=== PATIENT | female | born 1980 | race Caucasian/White ===

== ENCOUNTER 2019-08-02 13:00 | Emergency (ER) | payer MEDICAID ==
[2019-08-02 13:09] VITALS: BP 117/97; PULSE 87
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
== END 2019-08-02 14:15 | disposition left against medical advice (07) ==
LOC: JD.ED 13:00
DX: Z53.21 Procedure and treatment not carried out due to patient leaving prior to being seen by health care provider (principal)

== ENCOUNTER 2019-12-20 11:10 | Emergency (ER) | payer MEDICAID ==
[2019-12-20] MEDS ORDERED: Cyclobenzaprine 10 MG Tab PO ONE (12:13)
[2019-12-20 12:18] VITALS: BP 116/76; PULSE 91
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
--- NOTE | 2019-12-20 13:49 | CR ---
Chest: Portable view of the chest was obtained. Comparison: Prior chest x-ray of 06/15/19. Heart size and mediastinum are within normal limits for portable technique. Lungs are clear and no acute parenchymal change. Bony structures are grossly intact. Impression: 1. Nothing acute is seen on portable chest x-ray. Diagnostic code #1 Study was dictated in [place] Standard Time
== END 2019-12-20 13:54 | disposition home or self-care (01) ==
LOC: JD.ED 11:10
DX: S16.1XXA Strain of muscle, fascia and tendon at neck level, initial encounter (principal); B34.9 Viral infection, unspecified; E10.22 Type 1 diabetes mellitus with diabetic chronic kidney disease; N18.9 Chronic kidney disease, unspecified; F17.210 Nicotine dependence, cigarettes, uncomplicated; Z79.82 Long term (current) use of aspirin; Z88.5 Allergy status to narcotic agent; Z91.040 Latex allergy status; Z91.013 Allergy to seafood; Z79.01 Long term (current) use of anticoagulants; Z86.73 Personal history of transient ischemic attack (TIA), and cerebral infarction without residual deficits; Z87.442 Personal history of urinary calculi; Z90.710 Acquired absence of both cervix and uterus; Z90.49 Acquired absence of other specified parts of digestive tract; X58.XXXA Exposure to other specified factors, initial encounter
CPT/HCPCS: 36415; 71045; 71045-26; 80053; 85025; 87804; 99283; 99284-25